=== PATIENT | female | born 1970 | race Caucasian/White ===

== ENCOUNTER 2020-03-30 14:07 | Emergency (ER) | payer MEDICARE ==
[~2020-03-30 14:07] MED LIST: Iopamidol-370 76% 500 ML 1 ML ONE
[2020-03-30 14:32] LABS: #Basophils 0.1 thou/uL (0.0-0.2); #Eosinphils 0.3 thou/uL (0.0-0.7); #Lymphocytes 3.9 thou/uL (1.20-3.40); %Basophils 0.5 % (0.0-1.0); %Eosinophils 2.4 % (0.0-10.0); %Lymphocytes 27.2 % (21.0-51.0); %Monocytes 6.8 % (0.0-10.0); %Neutrophils 63.2 % (42.0-75.0); Hemoglobin 14.6 g/dL (12.0-16.0); Mean Corpuscular HGB CONC 34.4 g/dL (32.0-36.0); Mean Corpuscular Hemoglobin 32.2 pg (27.0-31.0); Mean Corpuscular Volume 93.5 fL (78.0-98.0); Mean Platelet Volume 9.4 fL (7.4-10.4); Platelet Count 285 thou/uL (130-400); RBC Distribution Width 10.8 % (11.5-14.5); Red Blood Cell (RBC) Count 4.55 mill/uL (4.20-5.40); White Blood Cell (WBC) Count 14.3 thou/uL (4.8-10.8)
[2020-03-30 14:56] LABS: ALT (SGPT) 16 U/L (8-55); AST (SGOT) 14 U/L (5-34); Albumin 4.7 g/dL (3.5-5.0); Alkaline Phosphatase 69 U/L (40-110); Anion Gap 16 mmol/L (10-20); BUN (Urea Nitrogen) 23 mg/dL (7.0-18.7); Bilirubin, Total 0.3 mg/dL (0.2-1.2); Calc. Creatinine Clearance 0 mL/min (70-130); Calcium 10.1 mg/dL (7.8-10.44); Carbon Dioxide 21 mmol/L (22-29); Chloride 106 mmol/L (98-107); Estimated GFR-MDRD 49; Globulin 2.6 g/dL (2.4-3.5); Glucose 108 mg/dL (70-105); Lipase 22 U/L (8-78); Potassium 4.2 mmol/L (3.5-5.1); Protein, Total 7.3 g/dL (6.0-8.3); Sodium 139 mmol/L (136-145)
[2020-03-30] MEDS ORDERED: Ketorolac Tromethamine 30 MG/ML VIAL ONE (15:03)
--- NOTE | 2020-03-30 15:44 | CT ---
CT Abdomen Pelvis W Con History: Severe right-sided abdominal pain Comparison: CT November 2019 Findings: Lung bases are clear. No pericardial effusion. Prior cholecystectomy. Moderate right hydroureteronephrosis due to a partially obstructing calculus measuring 3 x 4 x 4 mm. This is just distal to the UPJ by approximately 2 cm. Slight decreased right sided renal parenchymal enhancement. Hypodensity superior pole right kidney is similar. No other renal calculi are appreciated. No left-si ded hydroureteronephrosis or nephroureterolithiasis. The appendix is visualized and is normal. Small scar along the right lower quadrant abdomen likely fr om a laparoscopy. Sutures noted along the distal ileum. No acute osseous abnormality. Old superior and inferior pubic rami fractures. Impression: Partially obstructing right 3 x 4 x 4 mm proximal ureteral calculus 2 cm distal to the ur eteropelvic junction with moderate right-sided hydroureteronephrosis and delayed nephrogram.
[2020-03-30 16:21] LABS: Pregnancy Test - Urine (BHCG) Negative (Negative); Pregu Control Background? CLEAR/WHITE (CLR/WHITE); Pregu Control Bar Appear? YES (CONTROL BAR); Specific Gravity 1.046 (1.002-1.036)
[2020-03-30 16:23] LABS: Bacteria/HPF None Seen HPF (None Seen); Bilirubin Negative (Negative); Blood, Urine 3+ (Negative); Clarity Clear (Clear); Glucose, Urine (Dipstick) Normal (Negative); Ketone, Urine Negative (Negative); Leukocyte 25 Leu/uL (Negative); Mucous/LPF 1+ LPF (<2+); Nitrite Negative (Negative); Protein, Urine (Dipstick) 20 mg/dL (Neg-Trace); RBC/HPF Greater than 50 HPF (0-3); Specific Gravity, Urine 1.046 (1.002-1.036); Squamous Epithelial None Seen HPF (0-3); Urobilinogen Normal mg/dL (Less than 2); pH, Urine 6.5 (5.0-9.0)
[2020-03-30] MEDS ORDERED: Fentanyl 100 MCG/2 ML VIAL ONE (17:08)
== END 2020-03-30 17:31 | disposition home or self-care (01) ==
LOC: ERS 14:07
DX: N13.2 Hydronephrosis with renal and ureteral calculous obstruction (principal); E78.1 Pure hyperglyceridemia; E78.5 Hyperlipidemia, unspecified; F31.9 Bipolar disorder, unspecified; F17.210 Nicotine dependence, cigarettes, uncomplicated; Z79.899 Other long term (current) drug therapy
CPT/HCPCS: 36415; 51701; 74177; 80053; 81003; 81015; 81025; 83690; 85025; 87086; 96361; 96374; 96375; J1885; J3010; Q9967

== ENCOUNTER 2020-04-22 02:18 | Emergency (ER) | payer MEDICARE ==
--- NOTE | 2020-04-22 07:50 | RAD ---
THREE VIEWS LEFT ANKLE: COMPARISON: None. HISTORY: Twisted ankle at 5 o'clock with pain and swelling. FINDINGS: Three views left ankle show no evidence of acute fracture or dislocation. Mild lateral soft tissue s welling is seen. No degenerative changes are seen. IMPRESSION: No evidence of acute osseous abnormality. POS: EAA
== END 2020-04-22 02:46 | disposition home or self-care (01) ==
LOC: ERS 02:18
DX: S93.492A Sprain of other ligament of left ankle, initial encounter (principal); E78.2 Mixed hyperlipidemia; F31.9 Bipolar disorder, unspecified; F17.210 Nicotine dependence, cigarettes, uncomplicated; Z79.899 Other long term (current) drug therapy

== ENCOUNTER 2020-06-18 14:00 | Day surgery (SDC) | payer MEDICARE, OTHER ==
[~2020-06-18 14:00] MED LIST changes: +Dexamethasone 20 MG/5 ML VIAL ONE; -Iopamidol-370 76% 500 ML 1 ML ONE; +Lidocaine 1% PF 5 ML VIAL ONE; +Ondansetron PF 4 MG/2 ML Vial ONE; +PHENYLEPHRINE-NS 100 MCG/ML 10 ML SYRINGE ONE; +PROPOFOL 200 MG/20 ML VIAL ONE
[2020-06-18] MEDS ORDERED: Iothalamate Meglumine 60% 50 ML VIAL FS ONE (14:28)
[2020-06-18] MEDS ORDERED: Fentanyl 100 MCG/2 ML VIAL ONE (14:39)
[2020-06-18] MEDS ORDERED: Promethazine HCl 25 MG/ML VIAL IM PRN (15:43)
[2020-06-18] MEDS ORDERED: Ketorolac Tromethamine 30 MG/ML VIAL IVP PRN (15:43)
[2020-06-18] MEDS ORDERED: Promethazine HCl 25 MG/ML VIAL SLOW IVP PRN (15:43)
[2020-06-18] MEDS ORDERED: Meperidine HCl/PF 25 MG/ML VIAL SLOW IVP PRN (15:43)
[2020-06-18] MEDS ORDERED: Ondansetron HCl/PF 4 MG/2 ML Vial IVP PRN (15:43)
[2020-06-18] MEDS ORDERED: Ketorolac Tromethamine 30 MG/ML VIAL ONE (16:06)
--- NOTE | 2020-06-18 16:08 | RAD ---
RETROGRADE UROGRAM 06/18/20 PROVIDED CLINICAL HISTORY: Ureteral calculus. Correlation is made with CT 06/18/20, 9:13 a.m. Spot fluoroscopic frontal images of the abdomen demonstrate opacification of dilated right ureter and right renal collecting system with calculus in the distal right ureter proximal to which the ureter is dilated. Subsequent image demonstrates placement of ureteral stent with proximal coil overlying di lated right renal pelvis and distal coil overlying expected location of the urinary bladder. IMPRESSION: As above. POS: MANUEL
--- NOTE | 2020-06-19 04:51 | HP ---
CHIEF COMPLAINT: Right ureteral stone. HISTORY OF PRESENT ILLNESS: Ms. Gomez is a 49-year-old female with past urologic history significant for urolithiasis. She presented to the emergency department initially 1 week ago and was diagnosed with a 5 mm distal right ureteral stone. She was set up for trial of passage. The patient developed acute worsening of her pain. She presented back to the [facility] Emergency Department and a CT scan demonstrated the stone in identical location with moderate hydroureteronephrosis down to the level of the stone. She had significant bacteria as well as nitrite and red and white blood cells on a cathed urinalysis. She was tachycardic. I was then contacted and it was decided to transfer the patient to [place] for urologic care. The patient states she has passed several stones over the past 6 months and no history prior to this. She denies any fever, but has had some chills. She states she has had some nausea as well. No gross hematuria. No other complaints. REVIEW OF SYSTEMS: Full 12-point review of systems was performed and is negative other than that mentioned in HPI. PAST MEDICAL HISTORY: Hyperlipidemia. PAST SURGICAL HISTORY: 1. Colon resection. 2. Previous ileostomy and reversal. FAMILY HISTORY: Noncontributory. SOCIAL HISTORY: She drinks socially. No drugs. She does smoke marijuana occasionally. Positive smoking history, 30 pack-year smoking history. PHYSICAL EXAMINATION: VITAL SIGNS: Temperature 98.5, pulse 80, respirations 18, blood pressure 179/104, oxygen saturation 94% on room air. GENERAL: She is alert and oriented x3. No apparent distress. CARDIOVASCULAR: Regular rate and rhythm. PULMONARY: Breathing unlabored. ABDOMEN: Soft, nontender/nondistended. No masses or organomegaly. No suprapubic tenderness to palpation. No CVA tenderness. EXTREMITIES: Warm, well perfused. No edema. NEUROLOGIC: No focal deficits. LABORATORY DATA: Urinalysis as stated above. RADIOLOGY DATA: CT of abdomen and pelvis as stated above. These films were reviewed and agreed with radiologist's interpretation. ASSESSMENT: A 49-year-old female with right ureteral stone, right hydroureteronephrosis, UTI. PLAN: I reviewed the natural history and clinical implications of ureterolithiasis with the patient in detail. I discussed this in the setting of UTI. The patient is having uncontrolled pain and nausea and appears to have a UTI as well. I discussed options with the patient. After indications/risks/benefits/alternatives/possible outcomes were discussed with the patient in detail, she elected to proceed with right ureteral stent placement and all indicated procedures. She understands that a staged 2nd procedure will likely be performed to definitively manage the stone. She is currently afebrile and her tachycardia has resolved. We will evaluate whether or not she will require an admission for this, but at this point, the plan will be to manage this as an outpatient and send her home on a course of antibiotics. Job ID: [id number]
--- NOTE | 2020-06-20 14:50 | OP ---
DATE OF PROCEDURE: 06/18/2020 DIRECTOR HEDIS: None. PREPROCEDURE DIAGNOSES: 1. Right ureteral stone. 2. Urinary tract infection. 3. Right hydroureteronephrosis. POSTPROCEDURE DIAGNOSES: 1. Right ureteral stone. 2. Urinary tract infection. 3. Right hydroureteronephrosis. PROCEDURE PERFORMED: Cystoscopy with right ureteral stent placement, 4.8-Lebanese x 28 cm. ANESTHESIA: LMA anesthesia. COMPLICATIONS: None. FLUIDS: See anesthesia record. BLOOD LOSS: Minimal. SPECIMENS: None. POSTPROCEDURE STATUS: Satisfactory. INDICATIONS FOR PROCEDURE: Ms. Gomez is a 49-year-old female with history of urolithiasis. She has passed several stones previously. She has never seen a urologist in the past. The patient presented initially on 06/11/2020 with acute onset of right-sided flank pain. A CT scan demonstrated a distal 5 mm ureteral stone at that time with hydronephrosis. The patient was sent home on Cipro, pain medication, and nausea medication. She did not take her Cipro secondary to concerns over side effects. The patient ended up developing worsening pain and presented back to emergency department today. CT scan demonstrates the stone did not move and it is in an identical location. She was tachycardic and her pain was poorly controlled. She was then transferred to [facility] in [place]. After indications/risks/benefits/alternatives/possible outcomes were discussed with the patient in detail, she elected to proceed with right ureteral stent placement and all indicated procedures. DESCRIPTION OF PROCEDURE: The patient was taken to the operating room and after successful induction of LMA anesthesia, the patient was placed in the dorsal lithotomy position and her genitalia were prepped and draped in usual sterile fashion. A time-out was performed. Following which, a 22-Lebanese rigid cystoscope with obturator was advanced into the bladder. A 30-degree lens was used to perform cystoscopy and this demonstrated normal findings. The right ureteral orifice was identified. It was cannulated with an open-ended ureteral catheter and advanced to the distal ureter. Retrograde pyelogram was performed, which demonstrated severe right hydroureteronephrosis and what appeared to be a stone approximately 5 or 6 cm proximal to the right ureteral orifice. We initially had difficulty, however, we were eventually able to manipulate a PTFE wire beyond this stone. We attempted to manipulate the open-ended ureteral catheter alongside the stone and we were unsuccessful at this. We removed this. We attempted placement of a 6-Lebanese ureteral stent over the wire; however, we could not get it to pass. We then attempted dilating the ureter with a dual-lumen catheter by placing it over the wire and once again we were unsuccessful on being able to bypass the stone. At this point, we obtained a 4.8-Lebanese x 28 cm double-J ureteral stent. We were able to advance it beyond the stone and into the right renal pelvis. This was challenging to do, but we were eventually able to do it. The pusher was used to push the stone into the bladder. Upon wire removal, a good curl was achieved proximally within the right renal pelvis, but not within the bladder. We put the cystoscope back in the bladder and realized that the distal end of the ureteral stent was just inside the ureteral orifice, we could see it, however, could not grasp it with a grasper. We used a Accellion basket to grab the distal end of the stent, and pulled it out slightly, so it achieved a good curl both within the right renal pelvis and distally within the bladder. The patient's bladder was drained. She tolerated the procedure well, was awoken from anesthesia and transferred to the PACU in satisfactory condition. Job ID: [id number]
== END 2020-06-18 17:10 | disposition home or self-care (01) ==
LOC: SDC/OP 14:00
PROVIDERS: ATTEND Urology
PROC: 0T768DZ Dilation of Right Ureter with Intraluminal Device, Via Natural or Artificial Opening Endoscopic (ICD-10-PCS; principal; 2020-06-18)
DX: N13.6 Pyonephrosis (principal); F17.210 Nicotine dependence, cigarettes, uncomplicated; Z20.828 Contact with and (suspected) exposure to other viral communicable diseases
CPT/HCPCS: 52332; 74420; Z9049; J1885; J3010

== ENCOUNTER 2020-06-22 14:57 | Emergency (ER) | payer MEDICARE, OTHER ==
--- NOTE | 2020-06-22 16:12 | CT ---
CT ABDOMEN AND PELVIS WITHOUT CONTRAST: 06/22/20 INDICATION: History of cholecystectomy, appendectomy, hysterectomy, splenectomy, and right sided abdominal pain. COMPARISON: Prior CT of the abdomen and pelvis dated 06/18/20, 06/11/20, 03/30/20, and 12/11/19. FINDINGS: There has been interval placement of a right double-J ureteral stent. The stent is positioned within the right renal pelvis and bladder. There is a 3.3 mm stone adjacent to the distal aspect of the righ t ureteral stent at the level of the pelvic inlet. No hydronephrosis is evident. Exophytic hyperdense lesion measuring 1.8 cm off the posterior margin of the superior pole of the right kidney is stable appearing. Moderate to severe vascular calcification of the abdominal and pelvic vasculature is similar appearin g. There is diffuse fatty liver. Pancreas, adrenal glands, and spleen appear within normal limits. Th ere is postsurgical change of a partial small bowel resection. There is scattered colonic diverticula . The uterus is surgically absent. There is a healed fracture deformity involving the anterior pelvis. There is scattered degenerative a nd osteoarthritic change. No definite acute osseous abnormality is evident. IMPRESSION: 1. Interval placement of a right double-J ureteral stent. Small residual ureteral stone is seen adjacent to the distal right ureteral stent at the level of the pelvic inlet measures 3.3 mm. 2. Exophytic hyperdense lesion off the superior pole of the right kidney is stable. Follow-up re nal ultrasound for additional characterization is recommended. 3. Stable fatty liver. 4. Other chronic findings as above. POS: ROLAN
[2020-06-22 18:28] LABS: Bacteria/HPF 3+ HPF (None Seen); Bilirubin Negative (Negative); Blood, Urine 2+ (Negative); Clarity Turbid (Clear); Glucose, Urine (Dipstick) Normal (Negative); Ketone, Urine Negative (Negative); Leukocyte 500 Leu/uL (Negative); Mucous/LPF 1+ LPF (<2+); Nitrite Negative (Negative); Protein, Urine (Dipstick) 100 mg/dL (Neg-Trace); RBC/HPF 21-50 HPF (0-3); Specific Gravity, Urine 1.022 (1.002-1.036); Urobilinogen Normal mg/dL (Less than 2); WBC/HPF Greater than 50 HPF (0-3); pH, Urine 5.5 (5.0-9.0)
== END 2020-06-22 18:21 | disposition home or self-care (01) ==
LOC: ERS 14:57
DX: N20.1 Calculus of ureter (principal)
CPT/HCPCS: 74176; 81003; 81015; 87077; 87086; 87186

== ENCOUNTER 2021-06-20 14:51 | Emergency (ER) | payer MEDICARE ==
[2021-06-20 15:21] LABS: #Basophils 0.1 thou/uL (0.0-0.2); #Eosinphils 0.3 thou/uL (0.0-0.7); #Lymphocytes 4.3 thou/uL (1.20-3.40); #Neutrophils 9.4 thou/uL (1.40-6.50); %Basophils 0.6 % (0.0-1.0); %Eosinophils 2.2 % (0.0-10.0); %Lymphocytes 28.5 % (21.0-51.0); %Monocytes 6.5 % (0.0-10.0); %Neutrophils 62.2 % (42.0-75.0); Hemoglobin 14.2 g/dL (12.0-16.0); Mean Corpuscular Hemoglobin 33.5 pg (27.0-31.0); Mean Corpuscular Volume 95.6 fL (78.0-98.0); Mean Platelet Volume 8.8 fL (7.4-10.4); Platelet Count 245 thou/uL (130-400); RBC Distribution Width 11.2 % (11.5-14.5); Red Blood Cell (RBC) Count 4.25 mill/uL (4.20-5.40); White Blood Cell (WBC) Count 15.1 thou/uL (4.8-10.8)
[2021-06-20 15:26] LABS: BHCG - Serum Negative (NEGATIVE); Pregs Control Background? CLEAR/WHITE (CLR/WHITE); Pregs Control Bar Appear? YES (CONTROL BAR)
[2021-06-20 15:42] LABS: ALT (SGPT) 40 U/L (8-55); AST (SGOT) 19 U/L (5-34); Albumin 4.3 g/dL (3.5-5.0); Alkaline Phosphatase 82 U/L (40-110); Anion Gap 14 mmol/L (10-20); BUN (Urea Nitrogen) 18 mg/dL (7.0-18.7); Bilirubin, Total 0.3 mg/dL (0.2-1.2); Calc. Creatinine Clearance 0 mL/min (70-130); Calcium 10.2 mg/dL (7.8-10.44); Carbon Dioxide 23 mmol/L (22-29); Chloride 106 mmol/L (98-107); Globulin 2.8 g/dL (2.4-3.5); Glucose 107 mg/dL (70-105); Potassium 4.1 mmol/L (3.5-5.1); Protein, Total 7.1 g/dL (6.0-8.3); Sodium 139 mmol/L (136-145)
[2021-06-20 16:26] LABS: Bilirubin Negative (Negative); Blood, Urine Negative (Negative); Clarity Clear (Clear); Glucose, Urine (Dipstick) Normal (Negative); Ketone, Urine Negative (Negative); Leukocyte Negative Leu/uL (Negative); Nitrite Negative (Negative); Protein, Urine (Dipstick) 10 mg/dL (Neg-Trace); Specific Gravity, Urine 1.031 (1.002-1.036); Urobilinogen Normal mg/dL (Less than 2); pH, Urine 5.5 (5.0-9.0)
== END 2021-06-20 17:04 | disposition home or self-care (01) ==
LOC: ERS 14:51
DX: N28.1 Cyst of kidney, acquired (principal); E03.9 Hypothyroidism, unspecified; E78.5 Hyperlipidemia, unspecified; F17.210 Nicotine dependence, cigarettes, uncomplicated; Z79.899 Other long term (current) drug therapy
CPT/HCPCS: 36415; 74176; 80053; 81003; 84703; 85025; 87086

== ENCOUNTER 2021-06-30 11:09 | Emergency (ER) | payer MEDICARE ==
[2021-06-30 12:53] LABS: #Basophils 0.1 thou/uL (0.0-0.2); #Eosinphils 0.4 thou/uL (0.0-0.7); #Lymphocytes 3.9 thou/uL (1.20-3.40); #Monocytes 0.8 thou/uL (0.11-0.59); %Basophils 0.6 % (0.0-1.0); %Eosinophils 3.1 % (0.0-10.0); %Lymphocytes 32.1 % (21.0-51.0); %Monocytes 6.9 % (0.0-10.0); %Neutrophils 57.4 % (42.0-75.0); Hemoglobin 13.1 g/dL (12.0-16.0); Mean Corpuscular HGB CONC 34.6 g/dL (32.0-36.0); Mean Corpuscular Hemoglobin 33.3 pg (27.0-31.0); Mean Corpuscular Volume 96.4 fL (78.0-98.0); Mean Platelet Volume 8.6 fL (7.4-10.4); Platelet Count 230 thou/uL (130-400); RBC Distribution Width 11.1 % (11.5-14.5); Red Blood Cell (RBC) Count 3.94 mill/uL (4.20-5.40); White Blood Cell (WBC) Count 12.2 thou/uL (4.8-10.8)
[2021-06-30] MEDS ORDERED: Ketorolac Tromethamine 30 MG/ML VIAL ONE (13:25)
[2021-06-30 13:26] LABS: ALT (SGPT) 28 U/L (8-55); AST (SGOT) 20 U/L (5-34); Alkaline Phosphatase 70 U/L (40-110); Anion Gap 11 mmol/L (10-20); BUN (Urea Nitrogen) 22 mg/dL (7.0-18.7); Bilirubin, Total 0.2 mg/dL (0.2-1.2); Calc. Creatinine Clearance 0 mL/min (70-130); Calcium 9.6 mg/dL (7.8-10.44); Carbon Dioxide 27 mmol/L (22-29); Chloride 105 mmol/L (98-107); Globulin 2.6 g/dL (2.4-3.5); Glucose 106 mg/dL (70-105); Potassium 4.4 mmol/L (3.5-5.1); Protein, Total 6.6 g/dL (6.0-8.3); Sodium 139 mmol/L (136-145)
[2021-06-30] MEDS ORDERED: Fentanyl 100 MCG/2 ML VIAL ONE (13:26)
[2021-06-30 14:48] LABS: Bilirubin Negative (Negative); Blood, Urine Negative (Negative); Clarity Clear (Clear); Glucose, Urine (Dipstick) Normal (Negative); Ketone, Urine Negative (Negative); Leukocyte Negative Leu/uL (Negative); Nitrite Negative (Negative); Protein, Urine (Dipstick) Negative (Neg-Trace); Specific Gravity, Urine 1.022 (1.002-1.036); Urobilinogen Normal mg/dL (Less than 2); pH, Urine 5.5 (5.0-9.0)
== END 2021-06-30 15:20 | disposition home or self-care (01) ==
LOC: ERS 11:09
DX: R10.9 Unspecified abdominal pain (principal); E78.5 Hyperlipidemia, unspecified; E03.9 Hypothyroidism, unspecified; F17.210 Nicotine dependence, cigarettes, uncomplicated
CPT/HCPCS: 36415; 80053; 81003; 85025; 87086; 96374; 96375; J1885; J3010

== ENCOUNTER 2021-07-27 15:01 | Inpatient (IN) | payer MEDICARE ==
[2021-07-27 17:08] LABS: Hemoglobin 16.3 g/dL (12.0-16.0); Mean Corpuscular HGB CONC 35.3 g/dL (32.0-36.0); Mean Corpuscular Hemoglobin 33.2 pg (27.0-31.0); Mean Corpuscular Volume 94.1 fL (78.0-98.0); Mean Platelet Volume 8.6 fL (7.4-10.4); Platelet Count 322 thou/uL (130-400); RBC Distribution Width 11.2 % (11.5-14.5); White Blood Cell (WBC) Count 19.4 thou/uL (4.8-10.8)
[2021-07-27 17:26] LABS: Band 8 % (5-11); Eosinophils 2 % (0-10); Lymphocytes 28 % (21-51); MDiff Complete? YES; Monocytes 8 % (0-10); Neutrophil 47 % (42-75); Platelet Morphology Comment Appears Adequate; RBC Morphology Normal; Reactive Lymphocytes 7 % (0-10)
[2021-07-27 17:28] LABS: ALT (SGPT) 44 U/L (8-55); AST (SGOT) 24 U/L (5-34); Albumin 4.7 g/dL (3.5-5.0); Alkaline Phosphatase 84 U/L (40-110); Anion Gap 16 mmol/L (10-20); BUN (Urea Nitrogen) 15 mg/dL (7.0-18.7); Bilirubin, Total 0.5 mg/dL (0.2-1.2); Calc. Creatinine Clearance 0 mL/min (70-130); Calcium 10.6 mg/dL (7.8-10.44); Carbon Dioxide 23 mmol/L (22-29); Chloride 102 mmol/L (98-107); Glucose 120 mg/dL (70-105); Lipase 21 U/L (8-78); Potassium 3.8 mmol/L (3.5-5.1); Protein, Total 7.7 g/dL (6.0-8.3); Sodium 137 mmol/L (136-145)
[2021-07-27 17:34] LABS: Bilirubin Negative (Negative); Blood, Urine Negative (Negative); Clarity Clear (Clear); Glucose, Urine (Dipstick) Normal (Negative); Ketone, Urine Negative (Negative); Leukocyte Negative Leu/uL (Negative); Nitrite Negative (Negative); Protein, Urine (Dipstick) 30 mg/dL (Neg-Trace); RBC/HPF 0-3 HPF (0-3); Specific Gravity, Urine 1.025 (1.002-1.036); Squamous Epithelial 0-3 HPF (0-3); Urobilinogen Normal mg/dL (Less than 2); pH, Urine 5.5 (5.0-9.0)
[2021-07-27 17:35] LABS: Bacteria/HPF Rare-Few HPF (None Seen)
[2021-07-27] MEDS ORDERED: Morphine 4 MG/ML VIAL ONE (19:05)
[2021-07-27] MEDS ORDERED: Pantoprazole 40 MG VIAL ONE (19:05)
[2021-07-27] MEDS ORDERED: Ondansetron PF 4 MG/2 ML Vial ONE (19:05)
[2021-07-27] MEDS ORDERED: Ketorolac Tromethamine 30 MG/ML VIAL ONE (20:01)
[2021-07-27] MEDS ORDERED: Fentanyl 100 MCG/2 ML VIAL SLOW IVP PRN (21:48)
[2021-07-27] MEDS ORDERED: Acetaminophen 650 MG Suppository PR PRN (22:17)
[2021-07-27] MEDS ORDERED: Ondansetron ODT 4 MG TAB PO PRN (22:17)
[2021-07-27] MEDS ORDERED: traMADol HCl 50 MG TAB PO PRN (22:21)
[2021-07-27 22:30] LABS: SARS-CoV-2 NAA Rapid Test Not Detected (NotDetected)
[2021-07-27] MEDS ORDERED: lamoTRIgine 25 MG TAB PO SCH (22:45)
[2021-07-27] MEDS ORDERED: NS 0.9% w/ 20 MEQ KCL 1,000 ML ONE (23:00)
[2021-07-28] MEDS ORDERED: Sodium Chloride 0.9% 1,000 ML IV SCH (00:15)
[2021-07-28 02:54] VITALS: BMI 31.6
[2021-07-28 06:30] LABS: #Basophils 0.1 thou/uL (0.0-0.2); #Eosinphils 0.2 thou/uL (0.0-0.7); #Lymphocytes 3.6 thou/uL (1.20-3.40); #Monocytes 0.8 thou/uL (0.11-0.59); #Neutrophils 4.4 thou/uL (1.40-6.50); %Basophils 0.8 % (0.0-1.0); %Eosinophils 2.5 % (0.0-10.0); %Lymphocytes 39.1 % (21.0-51.0); %Monocytes 9.1 % (0.0-10.0); %Neutrophils 48.5 % (42.0-75.0); Hemoglobin 12.6 g/dL (12.0-16.0); Mean Corpuscular HGB CONC 35.6 g/dL (32.0-36.0); Mean Corpuscular Hemoglobin 33.8 pg (27.0-31.0); Mean Platelet Volume 8.6 fL (7.4-10.4); Platelet Count 191 thou/uL (130-400); RBC Distribution Width 11.1 % (11.5-14.5); Red Blood Cell (RBC) Count 3.72 mill/uL (4.20-5.40); White Blood Cell (WBC) Count 9.1 thou/uL (4.8-10.8)
[2021-07-28 07:05] LABS: Anion Gap 9 mmol/L (10-20); BUN (Urea Nitrogen) 17 mg/dL (7.0-18.7); Calc. Creatinine Clearance 123 mL/min (70-130); Calcium 8.8 mg/dL (7.8-10.44); Carbon Dioxide 26 mmol/L (22-29); Chloride 108 mmol/L (98-107); Glucose 129 mg/dL (70-105); Potassium 3.3 mmol/L (3.5-5.1); Sodium 140 mmol/L (136-145)
[2021-07-28] MEDS ORDERED: Calcium Carbonate 500 MG ChewTAB PO PRN (08:20)
[2021-07-28] MEDS: Ketorolac Tromethamine 30 MG/ML VIAL IVP PRN ×2 (08:32→18:53)
[2021-07-28] MEDS: NS 0.9% w/ 20 MEQ KCL 1,000 ML/1,000 ML BAG IV SCH ×2 (08:40→16:26)
[2021-07-28] MEDS: Carvedilol 3.125 MG TAB PO SCH ×2 (08:40→21:14)
[2021-07-28] MEDS: Pantoprazole 40 MG VIAL IVP SCH ×2 (08:40→21:16)
[2021-07-28] MEDS ORDERED: lamoTRIgine 25 MG TAB PO SCH (09:00)
[2021-07-28] MEDS ORDERED: Fenofibrate 48 MG TAB PO SCH (09:00)
[2021-07-28] MEDS ORDERED: lamoTRIgine 100 MG TAB PO SCH (09:00)
[2021-07-28 09:27] LABS: Magnesium 1.6 mg/dL (1.6-2.6); Phosphorus 3.8 mg/dL (2.3-4.7)
[2021-07-28] MEDS ORDERED: GoLYTELY 4,000 ml Bottle PO SCH (11:15)
[2021-07-28] MEDS: HYDROcodone/Acetaminophen 5/325 mg Tablet PO PRN ×2 (13:33→21:14)
[2021-07-28] MEDS: Ondansetron PF 4 MG/2 ML Vial IVP PRN (13:36)
[2021-07-28] MEDS ORDERED: Magnesium Sulfate 4 GM in Sodium Chloride 0.9% 250 ML 250 ML IVPB SCH (20:00)
[2021-07-28] MEDS: Fenofibrate 48 MG TAB PO SCH (21:14)
[2021-07-28] MEDS: lamoTRIgine 25 MG TAB PO SCH (21:15)
[2021-07-29] MEDS: NS 0.9% w/ 20 MEQ KCL 1,000 ML/1,000 ML BAG IV SCH ×3 (00:42→16:40)
[2021-07-29] MEDS: Ketorolac Tromethamine 30 MG/ML VIAL IVP PRN ×2 (04:42→12:43)
[2021-07-29] MEDS: HYDROcodone/Acetaminophen 5/325 mg Tablet PO PRN ×4 (04:44→20:18)
[2021-07-29 06:25] LABS: #Eosinphils 0.2 thou/uL (0.0-0.7); #Monocytes 0.6 thou/uL (0.11-0.59); #Neutrophils 3.6 thou/uL (1.40-6.50); %Basophils 0.6 % (0.0-1.0); %Eosinophils 3.4 % (0.0-10.0); %Lymphocytes 30.6 % (21.0-51.0); %Monocytes 9.4 % (0.0-10.0); %Neutrophils 56.2 % (42.0-75.0); Mean Corpuscular HGB CONC 34.8 g/dL (32.0-36.0); Mean Corpuscular Hemoglobin 33.7 pg (27.0-31.0); Mean Corpuscular Volume 96.7 fL (78.0-98.0); Platelet Count 173 thou/uL (130-400); RBC Distribution Width 11.2 % (11.5-14.5); Red Blood Cell (RBC) Count 3.56 mill/uL (4.20-5.40); White Blood Cell (WBC) Count 6.4 thou/uL (4.8-10.8)
[2021-07-29 06:54] LABS: ALT (SGPT) 40 U/L (8-55); AST (SGOT) 32 U/L (5-34); Albumin 3.3 g/dL (3.5-5.0); Alkaline Phosphatase 57 U/L (40-110); Anion Gap 10 mmol/L (10-20); BUN (Urea Nitrogen) 10 mg/dL (7.0-18.7); Bilirubin, Total 0.2 mg/dL (0.2-1.2); Calc. Creatinine Clearance 137 mL/min (70-130); Calcium 8.5 mg/dL (7.8-10.44); Carbon Dioxide 22 mmol/L (22-29); Chloride 113 mmol/L (98-107); Globulin 2.2 g/dL (2.4-3.5); Glucose 93 mg/dL (70-105); Magnesium 2.7 mg/dL (1.6-2.6); Phosphorus 2.3 mg/dL (2.3-4.7); Potassium 4.1 mmol/L (3.5-5.1); Protein, Total 5.5 g/dL (6.0-8.3); Sodium 141 mmol/L (136-145)
[2021-07-29] MEDS: Carvedilol 3.125 MG TAB PO SCH ×3 (07:55→20:02)
[2021-07-29] MEDS: Pantoprazole 40 MG VIAL IVP SCH (07:55)
[2021-07-29] MEDS: Vancomycin 25 MG/ML Oral SOLN PO SCH ×3 (11:24→20:12)
[2021-07-29] MEDS ORDERED: Carvedilol 3.125 MG TAB PO SCH ×2 (13:19→13:45)
[2021-07-29] MEDS: Dicyclomine 10 MG CAP PO PRN (18:30)
[2021-07-29] MEDS: Saccharomyces boulardii 250 MG CAP PO SCH (20:02)
[2021-07-29] MEDS: Fenofibrate 48 MG TAB PO SCH (20:02)
[2021-07-29] MEDS: Acetaminophen 325 MG TAB PO PRN (20:03)
[2021-07-29] MEDS: Famotidine 20 MG TAB PO SCH (20:03)
[2021-07-29] MEDS: Ondansetron PF 4 MG/2 ML Vial IVP PRN (20:45)
[2021-07-29] MEDS: lamoTRIgine 25 MG TAB PO SCH (20:59)
[2021-07-29] MEDS ORDERED: Enoxaparin Sodium 40 MG/0.4 ML SYRINGE SC SCH (21:00)
[2021-07-30] MEDS: Vancomycin 25 MG/ML Oral SOLN PO SCH ×4 (03:11→20:54)
[2021-07-30] MEDS: NS 0.9% w/ 20 MEQ KCL 1,000 ML/1,000 ML BAG IV SCH ×4 (03:13→23:03)
[2021-07-30] MEDS: Acetaminophen 325 MG TAB PO PRN ×2 (03:26→23:06)
[2021-07-30] MEDS: HYDROcodone/Acetaminophen 5/325 mg Tablet PO PRN ×5 (03:26→20:49)
[2021-07-30] MEDS: Carvedilol 3.125 MG TAB PO SCH ×2 (08:43→20:50)
[2021-07-30] MEDS: Famotidine 20 MG TAB PO SCH ×2 (08:43→20:50)
[2021-07-30] MEDS: Saccharomyces boulardii 250 MG CAP PO SCH ×2 (08:44→20:50)
[2021-07-30] MEDS: Dicyclomine 10 MG CAP PO PRN (10:37)
[2021-07-30] MEDS ORDERED: Fentanyl 100 MCG/2 ML VIAL SLOW IVP PRN (10:47)
[2021-07-30 15:18] LABS: #Monocytes 0.4 thou/uL (0.11-0.59); #Neutrophils 3.2 thou/uL (1.40-6.50); %Basophils 0.5 % (0.0-1.0); %Eosinophils 0.6 % (0.0-10.0); %Monocytes 9.4 % (0.0-10.0); %Neutrophils 67.5 % (42.0-75.0); Hemoglobin 11.1 g/dL (12.0-16.0); Mean Corpuscular HGB CONC 34.4 g/dL (32.0-36.0); Mean Corpuscular Hemoglobin 33.7 pg (27.0-31.0); Mean Corpuscular Volume 97.9 fL (78.0-98.0); Mean Platelet Volume 8.6 fL (7.4-10.4); Platelet Count 128 thou/uL (130-400); RBC Distribution Width 11.2 % (11.5-14.5); White Blood Cell (WBC) Count 4.7 thou/uL (4.8-10.8)
[2021-07-30 15:40] LABS: ALT (SGPT) 62 U/L (8-55); AST (SGOT) 49 U/L (5-34); Albumin 3.2 g/dL (3.5-5.0); Alkaline Phosphatase 61 U/L (40-110); Anion Gap 9 mmol/L (10-20); BUN (Urea Nitrogen) 8 mg/dL (7.0-18.7); Bilirubin, Total 0.2 mg/dL (0.2-1.2); Calc. Creatinine Clearance 143 mL/min (70-130); Calcium 8.4 mg/dL (7.8-10.44); Carbon Dioxide 22 mmol/L (22-29); Chloride 110 mmol/L (98-107); Glucose 111 mg/dL (70-105); Potassium 4.1 mmol/L (3.5-5.1); Protein, Total 5.2 g/dL (6.0-8.3); Sodium 137 mmol/L (136-145)
[2021-07-30] MEDS: Fenofibrate 48 MG TAB PO SCH (20:50)
[2021-07-30] MEDS: lamoTRIgine 25 MG TAB PO SCH (20:57)
[2021-07-31] MEDS: Vancomycin 25 MG/ML Oral SOLN PO SCH ×4 (03:26→22:32)
[2021-07-31] MEDS: HYDROcodone/Acetaminophen 5/325 mg Tablet PO PRN ×2 (06:39→20:15)
[2021-07-31 06:56] LABS: #Eosinphils 0.1 thou/uL (0.0-0.7); #Lymphocytes 1.4 thou/uL (1.20-3.40); #Monocytes 0.4 thou/uL (0.11-0.59); #Neutrophils 1.7 thou/uL (1.40-6.50); %Eosinophils 1.4 % (0.0-10.0); %Lymphocytes 39.3 % (21.0-51.0); %Monocytes 12.1 % (0.0-10.0); %Neutrophils 46.1 % (42.0-75.0); Hemoglobin 12.6 g/dL (12.0-16.0); Mean Corpuscular HGB CONC 34.4 g/dL (32.0-36.0); Mean Corpuscular Hemoglobin 33.3 pg (27.0-31.0); Mean Corpuscular Volume 96.7 fL (78.0-98.0); Platelet Count 135 thou/uL (130-400); RBC Distribution Width 11.2 % (11.5-14.5); White Blood Cell (WBC) Count 3.6 thou/uL (4.8-10.8)
[2021-07-31 07:21] LABS: ALT (SGPT) 73 U/L (8-55); AST (SGOT) 60 U/L (5-34); Albumin 3.4 g/dL (3.5-5.0); Alkaline Phosphatase 62 U/L (40-110); Anion Gap 13 mmol/L (10-20); BUN (Urea Nitrogen) 6 mg/dL (7.0-18.7); Bilirubin, Total 0.2 mg/dL (0.2-1.2); Calc. Creatinine Clearance 143 mL/min (70-130); Calcium 9.1 mg/dL (7.8-10.44); Carbon Dioxide 23 mmol/L (22-29); Chloride 106 mmol/L (98-107); Globulin 2.9 g/dL (2.4-3.5); Glucose 83 mg/dL (70-105); Phosphorus 3.1 mg/dL (2.3-4.7); Potassium 4.5 mmol/L (3.5-5.1); Protein, Total 6.3 g/dL (6.0-8.3); Sodium 137 mmol/L (136-145)
[2021-07-31] MEDS: Saccharomyces boulardii 250 MG CAP PO SCH ×2 (09:35→22:31)
[2021-07-31] MEDS: Carvedilol 3.125 MG TAB PO SCH ×2 (09:35→22:30)
[2021-07-31] MEDS: Acetaminophen 325 MG TAB PO PRN ×2 (09:35→18:20)
[2021-07-31] MEDS: NS 0.9% w/ 20 MEQ KCL 1,000 ML/1,000 ML BAG IV SCH ×2 (10:07→13:44)
[2021-07-31] MEDS: Famotidine 20 MG TAB PO SCH ×2 (11:53→22:30)
[2021-07-31] MEDS: Ondansetron PF 4 MG/2 ML Vial IVP PRN (20:15)
[2021-07-31] MEDS: Cyclobenzaprine 10 MG TAB PO PRN (20:15)
[2021-07-31] MEDS: Fenofibrate 48 MG TAB PO SCH (22:30)
[2021-07-31] MEDS: lamoTRIgine 25 MG TAB PO SCH (22:31)
[2021-08-01] MEDS: Vancomycin 25 MG/ML Oral SOLN PO SCH ×4 (03:20→21:05)
[2021-08-01] MEDS: NS 0.9% w/ 20 MEQ KCL 1,000 ML/1,000 ML BAG IV SCH ×2 (03:21→17:16)
[2021-08-01 05:34] LABS: Band 3 % (5-11); Hemoglobin 12.9 g/dL (12.0-16.0); Lymphocytes 24 % (21-51); MDiff Complete? YES; Mean Corpuscular HGB CONC 35.2 g/dL (32.0-36.0); Mean Corpuscular Hemoglobin 33.7 pg (27.0-31.0); Mean Corpuscular Volume 95.6 fL (78.0-98.0); Monocytes 20 % (0-10); Neutrophil 52 % (42-75); Platelet Count 139 thou/uL (130-400); Platelet Morphology Comment Appears Adequate; RBC Morphology Normal; Reactive Lymphocytes 1 % (0-10); Red Blood Cell (RBC) Count 3.83 mill/uL (4.20-5.40); White Blood Cell (WBC) Count 4.2 thou/uL (4.8-10.8)
[2021-08-01 05:39] LABS: Anion Gap 13 mmol/L (10-20); BUN (Urea Nitrogen) 5 mg/dL (7.0-18.7); Calc. Creatinine Clearance 132 mL/min (70-130); Calcium 9.3 mg/dL (7.8-10.44); Carbon Dioxide 24 mmol/L (22-29); Chloride 104 mmol/L (98-107); Glucose 103 mg/dL (70-105); Potassium 3.9 mmol/L (3.5-5.1); Sodium 137 mmol/L (136-145)
[2021-08-01] MEDS: Famotidine 20 MG TAB PO SCH ×2 (09:07→21:03)
[2021-08-01] MEDS: Saccharomyces boulardii 250 MG CAP PO SCH ×2 (09:07→21:04)
[2021-08-01] MEDS: Carvedilol 3.125 MG TAB PO SCH ×2 (09:07→21:03)
[2021-08-01] MEDS: Acetaminophen 325 MG TAB PO PRN (10:41)
[2021-08-01] MEDS: HYDROcodone/Acetaminophen 5/325 mg Tablet PO PRN ×3 (12:40→21:11)
[2021-08-01] MEDS: Fenofibrate 48 MG TAB PO SCH (21:03)
[2021-08-01] MEDS: lamoTRIgine 25 MG TAB PO SCH (21:04)
[2021-08-01] MEDS: Dicyclomine 10 MG CAP PO PRN (21:05)
[2021-08-01] MEDS: Cyclobenzaprine 10 MG TAB PO PRN (21:10)
[2021-08-02] MEDS: Vancomycin 25 MG/ML Oral SOLN PO SCH ×4 (03:38→22:24)
[2021-08-02] MEDS: Saccharomyces boulardii 250 MG CAP PO SCH ×2 (08:49→22:23)
[2021-08-02] MEDS: Carvedilol 3.125 MG TAB PO SCH ×2 (08:49→22:23)
[2021-08-02] MEDS: Famotidine 20 MG TAB PO SCH ×2 (08:49→22:23)
[2021-08-02] MEDS: NS 0.9% w/ 20 MEQ KCL 1,000 ML/1,000 ML BAG IV SCH ×2 (09:01→17:00)
[2021-08-02] MEDS: Dicyclomine 10 MG CAP PO PRN ×2 (11:36→16:59)
[2021-08-02] MEDS: HYDROcodone/Acetaminophen 5/325 mg Tablet PO PRN ×2 (11:36→16:59)
[2021-08-02] MEDS: Acetaminophen 325 MG TAB PO PRN (15:17)
[2021-08-02] MEDS: Fenofibrate 48 MG TAB PO SCH (22:23)
[2021-08-02] MEDS: lamoTRIgine 25 MG TAB PO SCH (22:23)
[2021-08-03] MEDS: Vancomycin 25 MG/ML Oral SOLN PO SCH ×4 (02:58→22:37)
[2021-08-03] MEDS: Saccharomyces boulardii 250 MG CAP PO SCH ×2 (09:50→22:35)
[2021-08-03] MEDS: Carvedilol 3.125 MG TAB PO SCH ×2 (09:50→22:36)
[2021-08-03] MEDS: Famotidine 20 MG TAB PO SCH ×2 (09:50→22:35)
[2021-08-03] MEDS: NS 0.9% w/ 20 MEQ KCL 1,000 ML/1,000 ML BAG IV SCH ×2 (09:50→23:13)
[2021-08-03] MEDS ORDERED: Iopamidol-370 76% 500 ML 1 ML ONE (11:05)
[2021-08-03] MEDS: HYDROcodone/Acetaminophen 5/325 mg Tablet PO PRN ×3 (13:25→22:36)
[2021-08-03] MEDS: Dicyclomine 10 MG CAP PO PRN ×2 (13:29→17:22)
[2021-08-03] MEDS: Ondansetron PF 4 MG/2 ML Vial IVP PRN (19:53)
[2021-08-03] MEDS ORDERED: Ketorolac Tromethamine 30 MG/ML VIAL IVP PRN (22:12)
[2021-08-03] MEDS: lamoTRIgine 25 MG TAB PO SCH (22:35)
[2021-08-03] MEDS: Fenofibrate 48 MG TAB PO SCH (22:36)
[2021-08-04] MEDS: NS 0.9% w/ 20 MEQ KCL 1,000 ML/1,000 ML BAG IV SCH ×4 (01:40→20:28)
[2021-08-04] MEDS: Vancomycin 25 MG/ML Oral SOLN PO SCH ×4 (04:07→20:30)
[2021-08-04 06:53] LABS: #Eosinphils 0.1 thou/uL (0.0-0.7); #Lymphocytes 1.4 thou/uL (1.20-3.40); #Monocytes 0.5 thou/uL (0.11-0.59); #Neutrophils 2.3 thou/uL (1.40-6.50); %Basophils 0.2 % (0.0-1.0); %Eosinophils 2.5 % (0.0-10.0); %Lymphocytes 32.7 % (21.0-51.0); %Monocytes 11.5 % (0.0-10.0); %Neutrophils 53.2 % (42.0-75.0); Hemoglobin 12.8 g/dL (12.0-16.0); Mean Corpuscular HGB CONC 35.5 g/dL (32.0-36.0); Mean Corpuscular Hemoglobin 33.9 pg (27.0-31.0); Mean Corpuscular Volume 95.7 fL (78.0-98.0); Mean Platelet Volume 8.3 fL (7.4-10.4); Platelet Count 165 thou/uL (130-400); RBC Distribution Width 10.9 % (11.5-14.5); Red Blood Cell (RBC) Count 3.78 mill/uL (4.20-5.40); White Blood Cell (WBC) Count 4.3 thou/uL (4.8-10.8)
[2021-08-04 07:12] LABS: ALT (SGPT) 43 U/L (8-55); AST (SGOT) 37 U/L (5-34); Albumin 3.7 g/dL (3.5-5.0); Alkaline Phosphatase 65 U/L (40-110); Anion Gap 16 mmol/L (10-20); BUN (Urea Nitrogen) Less than 4 mg/dL (7.0-18.7); Bilirubin, Total 0.4 mg/dL (0.2-1.2); Calc. Creatinine Clearance 135 mL/min (70-130); Calcium 9.3 mg/dL (7.8-10.44); Carbon Dioxide 20 mmol/L (22-29); Chloride 107 mmol/L (98-107); Globulin 2.7 g/dL (2.4-3.5); Glucose 98 mg/dL (70-105); Magnesium 1.7 mg/dL (1.6-2.6); Phosphorus 3.8 mg/dL (2.3-4.7); Potassium 3.8 mmol/L (3.5-5.1); Protein, Total 6.4 g/dL (6.0-8.3); Sodium 139 mmol/L (136-145)
[2021-08-04] MEDS: Carvedilol 3.125 MG TAB PO SCH ×2 (08:28→20:27)
[2021-08-04] MEDS: Famotidine 20 MG TAB PO SCH ×2 (08:29→20:27)
[2021-08-04] MEDS: Saccharomyces boulardii 250 MG CAP PO SCH ×2 (08:29→20:27)
[2021-08-04] MEDS: Dicyclomine 10 MG CAP PO PRN ×2 (08:35→18:14)
[2021-08-04] MEDS: HYDROcodone/Acetaminophen 5/325 mg Tablet PO PRN ×2 (11:52→20:40)
[2021-08-04 14:21] LABS: SARS-CoV-2 PCR by NAA DETECTED (NotDetected)
[2021-08-04 14:38] LABS: Bilirubin Negative (Negative); Blood, Urine Negative (Negative); Clarity Clear (Clear); Glucose, Urine (Dipstick) Normal (Negative); Ketone, Urine Negative (Negative); Leukocyte Negative Leu/uL (Negative); Nitrite Negative (Negative); Protein, Urine (Dipstick) Negative (Neg-Trace); RBC/HPF 0-3 HPF (0-3); Specific Gravity, Urine 1.006 (1.002-1.036); Squamous Epithelial 0-3 HPF (0-3); Urobilinogen Normal mg/dL (Less than 2); WBC/HPF 0-3 HPF (0-3); pH, Urine 5.5 (5.0-9.0)
[2021-08-04 14:42] LABS: Bacteria/HPF Rare-Few HPF (None Seen)
[2021-08-04 14:43] LABS: Urine Culture Reflex No No
[2021-08-04] MEDS: Fenofibrate 48 MG TAB PO SCH (20:27)
[2021-08-04] MEDS: lamoTRIgine 25 MG TAB PO SCH (20:27)
[2021-08-05] MEDS: Vancomycin 25 MG/ML Oral SOLN PO SCH ×3 (02:36→15:20)
[2021-08-05] MEDS: NS 0.9% w/ 20 MEQ KCL 1,000 ML/1,000 ML BAG IV SCH ×2 (04:24→15:21)
[2021-08-05] MEDS: Saccharomyces boulardii 250 MG CAP PO SCH (08:10)
[2021-08-05] MEDS: Carvedilol 3.125 MG TAB PO SCH (08:10)
[2021-08-05] MEDS: Famotidine 20 MG TAB PO SCH (08:10)
[2021-08-05] MEDS ORDERED: Tamsulosin HCl 0.4 MG CAP PO SCH (09:00)
[2021-08-05] MEDS: HYDROcodone/Acetaminophen 5/325 mg Tablet PO PRN ×2 (10:10→15:19)
[2021-08-05 17:14] VITALS: BP 154/88; TEMP 98.6
== END 2021-08-05 17:40 | disposition home or self-care (01) | DRG 371 ==
LOC: ERS 15:01 → ERHOLD 19:40 → SJJU 23:25 → CCU 07-28 08:59 → SJJU 07-28 09:06 → OBSVTOIN 07-29 13:06
PROVIDERS: ADMIT Student in an Organized Health Care Education/Training Program; ATTEND Family Medicine
DX: A04.72 Enterocolitis due to Clostridium difficile, not specified as recurrent (principal); U07.1 COVID-19; N13.2 Hydronephrosis with renal and ureteral calculous obstruction; G89.4 Chronic pain syndrome; F17.290 Nicotine dependence, other tobacco product, uncomplicated; F12.10 Cannabis abuse, uncomplicated; E86.0 Dehydration; I10 Essential (primary) hypertension; E66.9 Obesity, unspecified; E03.9 Hypothyroidism, unspecified; E78.5 Hyperlipidemia, unspecified; F31.9 Bipolar disorder, unspecified; E87.6 Hypokalemia; E83.42 Hypomagnesemia; K21.9 Gastro-esophageal reflux disease without esophagitis; N28.1 Cyst of kidney, acquired; Z79.899 Other long term (current) drug therapy; Z90.710 Acquired absence of both cervix and uterus; Z68.31 Body mass index [BMI] 31.0-31.9, adult; Z87.442 Personal history of urinary calculi; Z90.49 Acquired absence of other specified parts of digestive tract; Z93.2 Ileostomy status; Z88.1 Allergy status to other antibiotic agents; Z88.5 Allergy status to narcotic agent; Z88.0 Allergy status to penicillin; Z88.2 Allergy status to sulfonamides; Z88.8 Allergy status to other drugs, medicaments and biological substances
CPT/HCPCS: 36415; 74018; 74177; 80048; 80053; 81001; 81003; 81015; 83630; 83690; 83735; 84100; 85025; 86140; 87040; 87045; 87046; 87324; 87427; 87449; 87493; 96372; 96374; 96375; C9113; J0500; J1650; J1885; J2270; J2405; J3010; J3475; J3480; J7050; Q9967; U0002; U0003; U0005